=== PATIENT | male | born 1990 | race Caucasian/White ===

== ENCOUNTER 2020-06-13 12:52 | Emergency (ER) | payer OTHER ==
--- NOTE | 2020-06-13 13:22 | ED ---
Psych HPI - General Source: patient, RN notes reviewed Mode of arrival: ambulatory Limitations: no limitations <Emir Hulrey - Last Filed: 06/13/20 13:19> <Lluvia Gonsales - Last Filed: 06/13/20 18:56> <Arnaud Hendrickson - Last Filed: 06/14/20 11:01> - General Stated Complaint: mental health Time Seen by Provider: 06/13/20 13:15 - History of Present Illness Initial Comments: This is a 29-year-old male presents emergency Department chief complaint of depression, suicidal ideation. Patient does have a history of this and which symptoms and worsen last 1 week. Patient does admit to alcohol use today. Patient denies drug use currently history of marijuana. Patient does see a psychiatrist. Patient states that he was recently started on Zyprexa and Wellbutrin but states he seconds in the past and had no reaction. (Emir Hurley) - Related Data Home Medications Medication Instructions Recorded Confirmed Lisdexamfetamine Dimesylate 40 mg PO DAILY 06/13/20 06/13/20 [Vyvanse] OLANZapine [ZyPREXA] 5 mg PO HS 06/13/20 06/13/20 buPROPion HCL [buPROPion HCL Xl] 150 mg PO DAILY 06/13/20 06/13/20 Allergies Allergy/AdvReac Type Severity Reaction Status Date / Time lithium Allergy distonic Verified 06/13/20 17:36 paliperidone [From Invega] Allergy distonic Verified 06/13/20 17:36 Review of Systems ROS Other: All systems not noted in ROS Statement are negative. <Emir Hurley - Last Filed: 06/13/20 13:19> ROS Other: All systems not noted in ROS Statement are negative. <Lluvia Gonsales - Last Filed: 06/13/20 18:56> ROS Other: All systems not noted in ROS Statement are negative. <Arnaud Hendrickson - Last Filed: 06/14/20 11:01> ROS Statement: Those systems with pertinent positive or pertinent negative responses have been documented in the HPI. General Exam General appearance: alert, in no apparent distress Head exam: Present: atraumatic, normocephalic, normal inspection Respiratory exam: Present: normal lung sounds bilaterally. Absent: respiratory distress, wheezes, rales, rhonchi, stridor Cardiovascular Exam: Present: regular rate, normal rhythm, normal heart sounds. Absent: systolic murmur, diastolic murmur, rubs, gallop, clicks Neurological exam: Present: alert Psychiatric exam: Present: depressed, flat affect <Emir Hurley - Last Filed: 06/13/20 13:19> <Lluvia Gonsales - Last Filed: 06/13/20 18:56> - General Exam Comments Initial Comments: GENERAL: Patient is well-developed and well-nourished. Patient is nontoxic and in no acute distress. HEAD: Atraumatic, normocephalic. EYES: Pupils equal round and reactive to light, extraocular movements intact, sclera anicteric, conjunctiva are normal. Eyelids were unremarkable. ENT: Nares patent, oropharynx clear without exudates. Moist mucous membranes. NECK: Normal range of motion, supple without lymphadenopathy or JVD. LUNGS: Unlabored respirations. Breath sounds clear to auscultation bilaterally and equal. No wheezes rales or rhonchi. HEART: Regular rate and rhythm without murmurs, rubs or gallops. ABDOMEN: Soft, nontender, normoactive bowel sounds. No guarding, no rebound. No masses appreciated. : Deferred MUSCULOSKELETAL: Normal extremities with adequate strength and normal range of motion, no pitting or edema. No clubbing or cyanosis. NEUROLOGICAL: Patient is alert and oriented x 3. Motor and sensory are also intact. Cranial nerves II through XII grossly intact. Symmetrical smile. Normal speech, normal gait. PSYCH: Normal mood, normal affect. SKIN: Warm, Dry, normal turgor, no rashes or lesions noted. (Lluvia Gonsales) Course <Lluvia Gonsales - Last Filed: 06/13/20 18:56> Vital Signs 06/13/20 06/13/20 06/14/20 13:19 18:00 06:07 Temperature 98.1 F 98.1 F 97.9 F Pulse Rate 107 H 98 71 Respiratory 20 20 18 Rate Blood Pressure 127/84 122/84 102/63 O2 Sat by Pulse 97 99 98 Oximetry - Reevaluation(s) Reevaluation #1: 06/13/20 18:10 Vital signs remained stable, patient resting complaining of room. Awaiting EPS evaluation. (Lluvia Gonsales) Reevaluation #2: 06/13/20 18:55 Patient does meet inpatient criteria however patient lives in [facility] and will be seeking placement in [facility]. (Lluvia Gonsales) Medical Decision Making <Lluvia Gonsales - Last Filed: 06/13/20 18:56> - Lab Data Result diagrams: 06/13/20 20:09 06/13/20 20:09 <Arnaud Hendrickson - Last Filed: 06/14/20 11:01> - Medical Decision Making Patient is a 29-year-old male here for psychiatric evaluation. Increase in depression over the past week, suicidal ideation, no plan at this time. No homicidal thoughts. His vitals are stable, exam is unremarkable. BAT was 0.00. Patient was evaluated by EPS, Yue. She does meet for inpatient criteria however he lives in [facility] and he will be transferred to a facility in [facility]. Patient is pending placement. (Lluvia Gonsales) EPS evaluated the patient today the patient was not suicidal and he agreed to a safety plan his came and picked him up and she agreed to safety plan as well. (Arnaud Hendrickson) - Lab Data Lab Results 06/13/20 06/13/20 06/13/20 Range/Units 19:53 19:53 20:09 WBC 7.2 (3.8-10.6) k/uL RBC 4.87 (4.30-5.90) m/uL Hgb 15.4 (13.0-17.5) gm/dL Hct 43.6 (39.0-53.0) % MCV 89.4 (80.0-100.0) fL MCH 31.7 (25.0-35.0) pg MCHC 35.4 (31.0-37.0) g/dL RDW 12.2 (11.5-15.5) % Plt Count 223 (150-450) k/uL MPV 6.9 Sodium (137-145) mmol/L Potassium (3.5-5.1) mmol/L Chloride (98-107) mmol/L Carbon Dioxide (22-30) mmol/L Anion Gap mmol/L BUN (9-20) mg/dL Creatinine (0.66-1.25) mg/dL Est GFR (CKD-EPI)AfAm (>60 ml/min/1.73 sqM) Est GFR (CKD-EPI)NonAf (>60 ml/min/1.73 sqM) Glucose (74-99) mg/dL Calcium (8.4-10.2) mg/dL Total Bilirubin (0.2-1.3) mg/dL AST (17-59) U/L ALT (4-49) U/L Alkaline Phosphatase (38-126) U/L Total Protein (6.3-8.2) g/dL Albumin (3.5-5.0) g/dL Urine Color Yellow Urine Appearance Clear (Clear) Urine pH 6.0 (5.0-8.0) Ur Specific [place] 1.012 (1.001-1.035) Urine Protein Negative (Negative) Urine Glucose (UA) Negative (Negative) Urine Ketones Negative (Negative) Urine Blood Negative (Negative) Urine Nitrite Negative (Negative) Urine Bilirubin Negative (Negative) Urine Urobilinogen <2.0 (<2.0) mg/dL Ur Leukocyte Esterase Negative (Negative) Urine Opiates Screen Not Detected (NotDetected) Ur Oxycodone Screen Not Detected (NotDetected) Urine Methadone Screen Not Detected (NotDetected) Ur Propoxyphene Screen Not Detected (NotDetected) Ur Barbiturates Screen Not Detected (NotDetected) U Tricyclic Antidepress Not Detected (NotDetected) Ur Phencyclidine Scrn Not Detected (NotDetected) Ur Amphetamines Screen Detected H (NotDetected) U Methamphetamines Scrn Not Detected (NotDetected) U Benzodiazepines Scrn Not Detected (NotDetected) Urine Cocaine Screen Not Detected (NotDetected) U Marijuana (THC) Screen Not Detected (NotDetected) Coronavirus (PCR) (Not Detectd) 06/13/20 06/13/20 Range/Units 20:09 20:09 WBC (3.8-10.6) k/uL RBC (4.30-5.90) m/uL Hgb (13.0-17.5) gm/dL Hct (39.0-53.0) % MCV (80.0-100.0) fL MCH (25.0-35.0) pg MCHC (31.0-37.0) g/dL RDW (11.5-15.5) % Plt Count (150-450) k/uL MPV Sodium 138 (137-145) mmol/L Potassium 3.9 (3.5-5.1) mmol/L Chloride 103 (98-107) mmol/L Carbon Dioxide 30 (22-30) mmol/L Anion Gap 5 mmol/L BUN 12 (9-20) mg/dL Creatinine 0.90 (0.66-1.25) mg/dL Est GFR (CKD-EPI)AfAm >90 (>60 ml/min/1.73 sqM) Est GFR (CKD-EPI)NonAf >90 (>60 ml/min/1.73 sqM) Glucose 91 (74-99) mg/dL Calcium 8.9 (8.4-10.2) mg/dL Total Bilirubin 0.4 (0.2-1.3) mg/dL AST 31 (17-59) U/L ALT 28 (4-49) U/L Alkaline Phosphatase 53 (38-126) U/L Total Protein 6.5 (6.3-8.2) g/dL Albumin 3.9 (3.5-5.0) g/dL Urine Color Urine Appearance (Clear) Urine pH (5.0-8.0) Ur Specific [place] (1.001-1.035) Urine Protein (Negative) Urine Glucose (UA) (Negative) Urine Ketones (Negative) Urine Blood (Negative) Urine Nitrite (Negative) Urine Bilirubin (Negative) Urine Urobilinogen (<2.0) mg/dL Ur Leukocyte Esterase (Negative) Urine Opiates Screen (NotDetected) Ur Oxycodone Screen (NotDetected) Urine Methadone Screen (NotDetected) Ur Propoxyphene Screen (NotDetected) Ur Barbiturates Screen (NotDetected) U Tricyclic Antidepress (NotDetected) Ur Phencyclidine Scrn (NotDetected) Ur Amphetamines Screen (NotDetected) U Methamphetamines Scrn (NotDetected) U Benzodiazepines Scrn (NotDetected) Urine Cocaine Screen (NotDetected) U Marijuana (THC) Screen (NotDetected) Coronavirus (PCR) Not Detected (Not Detectd) Disposition <Emir Hurley - Last Filed: 06/13/20 13:19> <Lluvia Gonsales - Last Filed: 06/13/20 18:56> Is patient prescribed a controlled substance at d/c from ED?: No Time of Disposition: 11:00 <Arnaud Hendrickson - Last Filed: 06/14/20 11:01> Clinical Impression: Depression Disposition: HOME SELF-CARE Condition: Good Instructions (If sedation given, give patient instructions): Depression (ED) Referrals: None,Stated [Primary Care Provider] - 1-2 days
[2020-06-13 20:00] LABS: Appearance,Urine Clear (Clear); Bilirubin,Urine Negative (Negative); Blood,Urine Negative (Negative); Color,Urine Yellow; Glucose,Urine (UA) Negative (Negative); Ketones,Urine Negative (Negative); Leukocyte Esterase,Urine Negative (Negative); Nitrite,Urine Negative (Negative); Protein,Urine Negative (Negative); Specific Gravity,Urine 1.012 (1.001-1.035); Urobilinogen,Urine <2.0 mg/dL (<2.0)
[2020-06-13 20:11] LABS: Amphetamine Screen,Urine Detected (NotDetected); Barbiturate Screen,Urine Not Detected (NotDetected); Benzodiazepines Screen,Urine Not Detected (NotDetected); Cocaine Screen,Urine Not Detected (NotDetected); Methadone Screen, Urine Not Detected (NotDetected); Opiate Screen,Urine Not Detected (NotDetected); Oxycodone Screen, Urine Not Detected (NotDetected); Phencyclidine Screen,Urine Not Detected (NotDetected); Tricyclic Antidepressant,Urine Not Detected (NotDetected); Urn Cannabinoid Scrn Not Detected (NotDetected)
[2020-06-13 20:12] LABS: HCT 43.6 % (39.0-53.0); HGB 15.4 gm/dL (13.0-17.5); MCH 31.7 pg (25.0-35.0); MCHC 35.4 g/dL (31.0-37.0); MCV 89.4 fL (80.0-100.0); Mean Platelet Volume 6.9; Platelet Count 223 k/uL (150-450); RBC 4.87 m/uL (4.30-5.90); RDW 12.2 % (11.5-15.5); WBC 7.2 k/uL (3.8-10.6)
[2020-06-13] MEDS ORDERED: IBUPROFEN 600 MG TAB PO STA (20:16)
[2020-06-13 20:32] LABS: ALT 28 U/L (4-49); AST 31 U/L (17-59); African American GFR (CKD) >90 (>60 ml/min/1.73 sqM); Albumin 3.9 g/dL (3.5-5.0); Alkaline Phosphatase 53 U/L (38-126); Anion Gap 5 mmol/L; Blood Urea Nitrogen 12 mg/dL (9-20); Calcium 8.9 mg/dL (8.4-10.2); Carbon Dioxide 30 mmol/L (22-30); Chloride 103 mmol/L (98-107); Glucose 91 mg/dL (74-99); Non-African American GFR(CKD) >90 (>60 ml/min/1.73 sqM); Potassium 3.9 mmol/L (3.5-5.1); Sodium 138 mmol/L (137-145); Total Bilirubin 0.4 mg/dL (0.2-1.3); Total Protein 6.5 g/dL (6.3-8.2)
[2020-06-14 06:07] VITALS: BP 102/63; PULSE 71; RESP 18; TEMP 97.9
[2020-06-14] MEDS ORDERED: buPROPion XL 150 MG TAB.ER.24H PO SCH (09:00)
[2020-06-14] MEDS ORDERED: VYVANSE 40 MG PO SCH (09:00)
[2020-06-14] MEDS ORDERED: OLANZapine 5 MG TAB PO SCH (21:00)
== END 2020-06-14 11:03 | disposition home or self-care (01) ==
LOC: EC 12:52
DX: F32.9 Major depressive disorder, single episode, unspecified (principal); Z20.822 Contact with and (suspected) exposure to COVID-19
CPT/HCPCS: 36415; 80053; 80306; 81003; 82075; 85027; 87635; 99285